=== PATIENT | female | born 1965 | race Caucasian/White ===

== ENCOUNTER 2025-02-14 09:51 | Outpatient (AMB) | payer OTHER, SELFPAY ==
[2025-02-14 10:01] VITALS: BP 129/83; PULSE 90; RESP 18; TEMP 36.8; O2SAT 95; BMI 47.9
--- NOTE | 2025-02-14 10:01 | PD.ORTHCLVIS ---
Vital signs 02/14/25 10:01 Height 1.6 m Height Method Stated Weight 122.612 kg Weight Measurement Method Standing Scale BMI 47.9 BP 129/83 Blood Pressure Source Automatic Cuff Blood Pressure Location Right Upper Arm Position Sitting Respiration 18 Pulse 90 Pulse Source Monitor Temp 98.3 F Temp Source Temporal Artery Scan Pulse Oximetry (%) 95 Oxygen Delivery Method Room Air Med/Allergies Allergies & Medications Allergies No Known Allergies Allergy (Verified 02/14/25 10:02) Medication Reconciliation aspirin 81 mg tablet,delayed release (Adult Aspirin Regimen) 81 mg PO QDAY 02/14/25 [History Confirmed 02/14/25] clonidine HCl 0.2 mg tablet 0.2 mg PO BID 02/14/25 [History Confirmed 02/14/25] ergocalciferol (vitamin D2) 1,250 mcg (50,000 unit) capsule 1,250 mcg PO QWEEK 02/14/25 [History Confirmed 02/14/25] folic acid 1 mg tablet 1 mg PO QDAY 02/14/25 [History Confirmed 02/14/25] hydrocodone 5 mg-acetaminophen 325 mg tablet 1 tab PO BID PRN 02/14/25 [History Confirmed 02/14/25] hydroxychloroquine 200 mg tablet 200 mg PO QDAY 02/14/25 [History Confirmed 02/14/25] lisinopril 40 mg tablet 40 mg PO QDAY 02/14/25 [History Confirmed 02/14/25] methotrexate 2.5 mg/mL oral solution 2.5 mg PO QWEEK 02/14/25 [History Confirmed 02/14/25] Exam Exam Breathing is nonlabored. Patient has a normal mood and affect. Bilateral extremities were evaluated and demonstrates sensation intact to light touch. Palpable pedal pulses are present. No significant edema is present. Bilateral hips were examined. The patient has no pain with log roll of the hips. Internal rotation to 30 degrees and external rotation to 30 degrees is painless. Negative FADIR. Left knee was examined today. The left knee is in reasonable alignment. Range of motion from 0-120 degrees. Knee is stable to varus and valgus as well as AP translation with <5mm. Patient has a negative McMurrays. There is no pain with patellofemoral compression and no crepitus noted. The knee is nontender to palpation. The right knee was also examined. The right knee is in varus alignment. Range of motion from 0-115 degrees. Knee is stable to varus and valgus as well as AP translation with <5mm. Patient has a negative McMurrays. There is no pain with patellofemoral compression and no crepitus noted. The knee is tender to palpation medially. Assessment and Plan Problem List (1) Arthritis of right knee: Status: Acute Plan: Patient is a morbidly obese 59-year-old female with rheumatoid arthritis and right knee pain. She reports that both knees actually hurt but the right knee is significantly worse. We will get standing x-rays. We will plan for cortisone injections at the next visit after we get authorization. She is not an operative candidate at this time Office Procedures GNS Level of Care Nursing/Assessment Patient Status: Initial/New Patient Nursing Assessment/Reassesment: Medication Reconciliation and Update PMH in EMR Coordination of Care: Complex Care and Chronic Disease 1-5, Consent,records obtained, informed consent, Education Simp Pt/Fam, 1 Ins Authorization, Lab and Imaging orders, Results/Orders obtained and Staff clarify orders Special Needs: Language special needs (EGYPTIAN ) New Patient Charge New Patient Point Assignment: 1104 New Patient Point Charge: INDEPENDENT MARKETING CONSULTANT Level 3 ([id number]) MA Intake Visit Data Collection New Patient or Established: New Patient (never been to [facility]) Reason for Visit:: RIGHT KNEE PAIN Seen by Clinical Staff ONLY (RN/MA): No Order Entry Technician Required: Yes PCP or OBGYN visit in last 3 months: Yes Hx Now: No Do You Feel Safe at Home: Yes Authorities Contacted: N/A Questionairres Past Medical History Past Medical History Have you ever been diagnosed with any of the following: Respiratory Problems Smoking: No Smoking Cessation Counseling: No Smoking Exposure: No Tobacco Use: No Subjective Visit Visit for: new patient and knee (RIGHT KNEE ) Immunization / Flu Flu Vaccine in the Last 12 Months: No Flu Vaccine Exclusion Criteria: Refused by Patient History of Present Illness Chief complaint: Bilateral knee pain Mary is a pleasant 59-year-old female with bilateral knee pain and bilateral knee arthritis. She does have a history of rheumatoid arthritis as well as lupus. She reports it is now well-controlled. She reports her weight is up and down. She has tried hyaluronic acid injections in the past Personal History Red flag PMH: none Pain Pain level (0-10): 8 Pain duration: 2 MONTHS Pain location: anterior Pain quality: sharp, burning and tingling Pain timing: increases with activity Associated signs & symptoms: weakness and stiffness Ambulatory data Ambulatory device: cane Walking distance (minutes): 5 Treatments Number of previous injections: 3 Improvement with previous injections: No Number of Physical Therapy sessions: 3 Improvement with PT: No Improvement with NSAIDS: n/a Review of Systems Review of Systems: All systems negative unless otherwise noted in HPI.
--- NOTE | 2025-02-14 10:23 | XR_ITS ---
Examination: Bilateral knees 2 views Right lateral knee left lateral knee 2 views Bilateral axial knees single view TECHNIQUE: Bilateral AP knees standing single view, bilateral PA knees standing single view flexion Standing right lateral knee left lateral knee 2 views Bilateral axial knees single view total 5 views Exam date and time: February 14, 2025 1031 hours INDICATIONS: Bilateral knee pain one year. FINDINGS: Moderate osteopenia Advanced narrowing cbil-[id number] medial joint space right knee Advanced narrowing medial joint space left knee Significant osteoarthritis lateral joint space right knee Significant osteoarthritis patellofemoral joints IMPRESSION: Significant osteoarthritis as above, including advanced narrowing [id number] medial joint space right knee Advanced narrowing medial joint space left knee
== END 2025-02-14 10:24 | disposition home or self-care (01) ==
LOC: HODSRG 09:51
PROVIDERS: Supervising Provider Orthopaedic Surgery Adult Reconstructive Orthopaedic Surgery; Visit Provider Orthopaedic Surgery Adult Reconstructive Orthopaedic Surgery
DX: M17.11 Unilateral primary osteoarthritis, right knee (principal); M25.561 Pain in right knee; M25.862 Other specified joint disorders, left knee
CPT/HCPCS: 73564; 99203; G0463

== ENCOUNTER 2025-03-16 08:34 | Outpatient (AMB) | payer OTHER, SELFPAY ==
[2025-03-16 08:48] VITALS: BP 128/84; PULSE 84; RESP 18; TEMP 36.5; O2SAT 94; BMI 48.8
--- NOTE | 2025-03-16 08:48 | PD.ORTHCLVIS ---
Vital signs 03/16/25 08:48 Height 1.6 m Height Method Stated Weight 124.936 kg Weight Measurement Method Standing Scale BMI 48.8 BP 128/84 Blood Pressure Source Automatic Cuff Blood Pressure Location Left Upper Arm Position Sitting Respiration 18 Pulse 84 Pulse Source Monitor Temp 97.7 F Temp Source Temporal Artery Scan Pulse Oximetry (%) 94 L Oxygen Delivery Method Room Air Med/Allergies Allergies & Medications Allergies No Known Allergies Allergy (Verified 03/16/25 08:53) Medication Reconciliation aspirin 81 mg tablet,delayed release (Adult Aspirin Regimen) 81 mg PO QDAY 02/14/25 [History Confirmed 03/16/25] clonidine HCl 0.2 mg tablet 0.2 mg PO BID 02/14/25 [History Confirmed 03/16/25] ergocalciferol (vitamin D2) 1,250 mcg (50,000 unit) capsule 1,250 mcg PO QWEEK 02/14/25 [History Confirmed 03/16/25] folic acid 1 mg tablet 1 mg PO QDAY 02/14/25 [History Confirmed 03/16/25] hydrocodone 5 mg-acetaminophen 325 mg tablet 1 tab PO BID PRN 02/14/25 [History Confirmed 03/16/25] hydroxychloroquine 200 mg tablet 200 mg PO QDAY 02/14/25 [History Confirmed 03/16/25] lisinopril 40 mg tablet 40 mg PO QDAY 02/14/25 [History Confirmed 03/16/25] methotrexate 2.5 mg/mL oral solution 2.5 mg PO QWEEK 02/14/25 [History Confirmed 03/16/25] Exam Exam Breathing is nonlabored. Patient has a normal mood and affect. Bilateral extremities were evaluated and demonstrates sensation intact to light touch. Palpable pedal pulses are present. No significant edema is present. Bilateral hips were examined. The patient has no pain with log roll of the hips. Internal rotation to 30 degrees and external rotation to 30 degrees is painless. Negative FADIR. Left knee was examined today. The left knee is in reasonable alignment. Range of motion from 0-120 degrees. Knee is stable to varus and valgus as well as AP translation with <5mm. Patient has a negative McMurrays. There is no pain with patellofemoral compression and no crepitus noted. The knee is nontender to palpation. The right knee was also examined. The right knee is in varus alignment. Range of motion from 0-115 degrees. Knee is stable to varus and valgus as well as AP translation with <5mm. Patient has a negative McMurrays. There is no pain with patellofemoral compression and no crepitus noted. The knee is tender to palpation medially. Bilateral knee x-rays demonstrates joint space narrowing and medial arthritis. Assessment and Plan Problem List (1) Arthritis of right knee: Status: Acute Plan: Patient is a morbidly obese 59-year-old female with rheumatoid arthritis and right knee pain. She reports that both knees actually hurt but the right knee is significantly worse. She is not a great candidate for total knee replacement at this time given her body habitus. Recommend knee cortisone injections as patient would like to proceed with conservative treatment at this time. The risks and benefits of the procedure were reviewed with the patient and patient gave verbal consent to continue with the procedure. Procedure: performed by Dr. Ann Using sterile technique the Bilateral knees were thoroughly prepped with alcohol, and approximately 1 cc of Kenalog 40 mg/mL and 4 cc of 1% lidocaine was injected into each knee without resistance into the medial tibial femoral joint space. The patient tolerated the procedure. Office Procedures GNS Level of Care Nursing/Assessment Patient Status: Established Patient Nursing Assessment/Reassesment: Medication Reconciliation, Update PMH in EMR and Vital Signs Coordination of Care: Complex Care and Chronic Disease 1-5, Education Complex Pt/Fam, Consent,records obtained, informed consent, Results/Orders obtained and Staff clarify orders Special Needs: Language special needs Established Patient Charge Established Patient Point Assignment: 95 Established Patient Point Charge: EP Level 3 (80-115) Surgical Proc/IM SQ injection Major Surgical Procedure: Yes (BILATERAL KNEE INJECTION ) Medication Given Medication Given Medication Given: Yes Documented Dose Given: 8 Route: Infiitration Medication Given Medication Given Medication Given: Yes Documented Dose Given: 2 Office Meds Xylocaine 10 mg/mL (1 %) injection solution Performing Provider: Adis Ann MD Performing Location: [facility] Administered by: Adis Ann MD on 03/16/25 09:06 Dose Route Admin Location Dispensed Lot Number Expiration Date [facility] Personal [employer] 40 mL Infiltration 40 mL [id number] 07/03/28 34436-829-69 [facility] triamcinolone acetonide 40 mg/mL suspension for injection Performing Provider: Adis Ann MD Performing Location: [facility] Administered by: Adis Ann MD on 03/16/25 09:06 Dose Route Admin Location Dispensed Lot Number Expiration Date [facility] Personal Injury Specialist 80 mg intra-articular KNEE 2 mL [id number] 10/02/26 1174-0342-34 [employer]ENTER[employer] [place] Intake Visit Data Collection New Patient or Established: Established Patient (seen at [facility] within 3 years) Reason for Visit:: XRAY RESULTS/BL KNEE INJ Seen by Clinical Staff ONLY (RN/MA): No Damage Inside Adjuster Required: No PCP or OBGYN visit in last 3 months: Yes Hx Now: No Do You Feel Safe at Home: Yes Authorities Contacted: N/A Questionairres Past Medical History Past Medical History Have you ever been diagnosed with any of the following: Respiratory Problems Smoking: No Smoking Cessation Counseling: No Smoking Exposure: No Tobacco Use: No Subjective Visit Visit for: follow up visit, knee (BILATERAL), x-rays and injections Immunization / Flu Flu Vaccine in the Last 12 Months: No Flu Vaccine Exclusion Criteria: Refused by Patient History of Present Illness Chief complaint: Bilateral knee pain Mary is a pleasant 59-year-old female with bilateral knee pain and bilateral knee arthritis. She does have a history of rheumatoid arthritis as well as lupus. She reports it is now well-controlled. She reports her weight is up and down. She has tried hyaluronic acid injections in the past Personal History Occupation: RETIRED Red flag PMH: none Pain Pain level (0-10): 8 Pain duration: CONSTANT Pain location: inside (medial) and anterior Pain quality: sharp, dull and aching Pain timing: night, increases with activity and stairs Associated signs & symptoms: numbness, weakness and stiffness Ambulatory data Ambulatory device: cane Walking distance (minutes): 5 Treatments Number of previous injections: 3 Improvement with previous injections: No Number of Physical Therapy sessions: 3 Improvement with PT: No Improvement with NSAIDS: no Review of Systems Review of Systems: All systems negative unless otherwise noted in HPI.
== END 2025-03-16 09:08 | disposition home or self-care (01) ==
LOC: HODSRG 08:34
PROVIDERS: Supervising Provider Orthopaedic Surgery Adult Reconstructive Orthopaedic Surgery; Visit Provider Orthopaedic Surgery Adult Reconstructive Orthopaedic Surgery
DX: M17.0 Bilateral primary osteoarthritis of knee (principal); M25.562 Pain in left knee; M25.561 Pain in right knee; E66.01 Morbid (severe) obesity due to excess calories; Z68.42 Body mass index [BMI] 45.0-49.9, adult
CPT/HCPCS: 20610; 99213; J3301; J3490; G0463

== ENCOUNTER 2025-06-20 08:04 | Outpatient (AMB) | payer OTHER, SELFPAY ==
--- NOTE | 2025-06-20 08:11 | ORTHONT_ITS ---
Vital signs 06/20/25 08:17 Height 1.6 m Height Method Measured Weight 125.844 kg Weight Measurement Method Standing Scale BMI 49.1 BP 149/92 H Blood Pressure Source Automatic Cuff Blood Pressure Location Left Upper Arm Position Sitting Respiration 18 Pulse 87 Pulse Source Monitor Temp 97.4 F Temp Source Temporal Artery Scan Pulse Oximetry (%) 95 Oxygen Delivery Method Room Air Med/Allergies Allergies & Medications Allergies No Known Allergies Allergy (Verified 06/20/25 08:18) Medication Reconciliation aspirin 81 mg tablet,delayed release (Adult Aspirin Regimen) 81 mg PO QDAY 02/14 [History Confirmed 06/20/25] clonidine HCl 0.2 mg tablet 0.2 mg PO BID 02/14/25 [History Confirmed 06/20/25] ergocalciferol (vitamin D2) 1,250 mcg (50,000 unit) capsule 1,250 mcg PO QWEEK 02/14/25 [History Confirmed 06/20/25] folic acid 1 mg tablet 1 mg PO QDAY 02/14/25 [History Confirmed 06/20/25] hydrocodone 5 mg-acetaminophen 325 mg tablet 1 tab PO BID PRN 02/14/25 [History Confirmed 06/20/25] hydroxychloroquine 200 mg tablet 200 mg PO QDAY 02/14/25 [History Confirmed 06/20/25] lisinopril 40 mg tablet 40 mg PO QDAY 02/14/25 [History Confirmed 06/20/25] methotrexate 2.5 mg/mL oral solution 2.5 mg PO QWEEK 02/14/25 [History Confirmed 06/20/25] Exam Exam Breathing is nonlabored. Patient has a normal mood and affect. Bilateral extremities were evaluated and demonstrates sensation intact to light touch. Palpable pedal pulses are present. No significant edema is present. Bilateral hips were examined. The patient has no pain with log roll of the hips. Internal rotation to 30 degrees and external rotation to 30 degrees is painless. Negative FADIR. Left knee was examined today. The left knee is in reasonable alignment. Range of motion from 0-120 degrees. Knee is stable to varus and valgus as well as AP translation with <5mm. Patient has a negative McMurrays. There is no pain with patellofemoral compression and no crepitus noted. The knee is nontender to palpation. The right knee was also examined. The right knee is in varus alignment. Range of motion from 0-115 degrees. Knee is stable to varus and valgus as well as AP translation with <5mm. Patient has a negative McMurrays. There is no pain with patellofemoral compression and no crepitus noted. The knee is tender to palpation medially. Bilateral knee x-rays demonstrates joint space narrowing and medial arthritis. Assessment and Plan Problem List (1) Arthritis of right knee: Status: Acute Plan: Patient is a morbidly obese 59-year-old female with rheumatoid arthritis and right knee pain. She reports that both knees actually hurt but the right knee is significantly worse. She is not a great candidate for total knee replacement at this time given her body habitus. Recommend knee cortisone injections as patient would like to proceed with conservative treatment at this time. The risks and benefits of the procedure were reviewed with the patient and patient gave verbal consent to continue with the procedure. Procedure: performed by Dr. Ann Using sterile technique the Bilateral knees were thoroughly prepped with alcohol, and approximately 1 cc of Depo-Medrol 80 and 4 cc of 0.2% ropivacaine was injected into each knee without resistance into the medial tibial femoral joint space. The patient tolerated the procedure. Office Procedures GNS Level of Care Nursing/Assessment Patient Status: Established Patient Nursing Assessment/Reassesment: Medication Reconciliation, Orthostatic Vitals, Update PMH in EMR and Vital Signs Coordination of Care: Complex Care and Chronic Disease 1-5, Education Complex Pt/Fam, Consent,records obtained, informed consent, Results/Orders obtained and Staff clarify orders Special Needs: Language special needs Established Patient Charge Established Patient Point Assignment: 105 Established Patient Point Charge: EP Level 3 (80-115) Surgical Proc/IM SQ injection Major Surgical Procedure: Yes (BILATERAL KNEE INJECTION) Medication Given Medication Given Medication Given: Yes Documented Dose Given: 1 Route: Infiitration Medication Given Medication Given Medication Given: Yes Documented Dose Given: 1 Route: Infiitration Medication Given Medication Given Medication Given: Yes Documented Dose Given: 4 Route: Infiitration Medication Given Medication Given Medication Given: Yes Documented Dose Given: 4 Route: Infiitration Office Meds methylprednisolone acetate 80 mg/mL suspension for injection Performing Provider: Adis Ann MD Performing Location: [facility] Administered by: Adis Ann MD on 06/20/25 08:49 Dose Route Admin Location Dispensed Lot Number Expiration Date [facility] [employer] 80 mg intra-articular 1 mL [id number] 12/01/26 9673-5807-34 PH [id number]-[id number] methylprednisolone acetate 80 mg/mL suspension for injection Performing Provider: Adis Ann MD Performing Location: [facility] Administered by: Adis Ann MD on 06/20/25 08:49 Dose Route Admin Location Dispensed Lot Number Expiration Date [facility] [employer] 80 mg intra-articular 1 mL [id number] 03/31/27 [address]-2 [employer] ropivacaine (PF) 2 mg/mL (0.2 %) injection solution Performing Provider: Adis Ann MD Performing Location: [facility] Administered by: Adis Ann MD on 06/20/25 08:49 Dose Route Admin Location Dispensed Lot Number Expiration Date [facility] [employer] 20 mL Infiltration 20 mL [id number] 08/31/26 07194-258-66 [facility] ropivacaine (PF) 2 mg/mL (0.2 %) injection solution Performing Provider: Adis Ann MD Performing Location: [facility] Administered by: Adis Ann MD on 06/20/25 08:49 Dose Route Admin Location Dispensed Lot Number Expiration Date [facility] [employer] 20 mL Infiltration 20 mL [id number] 08/31/26 95397-474-29 [facility] [place] Intake Visit Data Collection Reason for Visit:: BL KNEE INJ/3 MONTH F/U Seen by Clinical Staff ONLY (RN/MA): No Assessment Analyst Required: Yes PCP or OBGYN visit in last 3 months: Yes Hx Now: No Do You Feel Safe at Home: Yes Authorities Contacted: N/A Questionairres Past Medical History Past Medical History Have you ever been diagnosed with any of the following: Respiratory Problems Smoking: No Smoking Cessation Counseling: No Smoking Exposure: No Tobacco Use: No Subjective Visit Visit for: follow up visit and knee Immunization / Flu Flu Vaccine in the Last 12 Months: No Flu Vaccine Exclusion Criteria: Refused by Patient History of Present Illness Chief complaint: 3 MONTH F/U BILATERAL KNEE INJECTION Mary is a pleasant 59-year-old female with bilateral knee pain and bilateral knee arthritis. She does have a history of rheumatoid arthritis as well as lupus. She reports it is now well-controlled. She reports her weight is up and down. She has tried hyaluronic acid injections in the past.She received 2 months with the last knee injection Personal History Occupation: RETIRED Red flag PMH: none Pain Pain level (0-10): 8 Pain duration: CONSTANT Pain location: inside (medial) and anterior Pain quality: sharp, dull and aching Pain timing: night, increases with activity and stairs Associated signs & symptoms: numbness, weakness and stiffness Ambulatory data Ambulatory device: cane Walking distance (minutes): 5 Treatments Number of previous injections: 5 Improvement with previous injections: Yes Number of Physical Therapy sessions: 3 Improvement with PT: No Improvement with NSAIDS: no Review of Systems Review of Systems: All systems negative unless otherwise noted in HPI.
[2025-06-20 08:17] VITALS: BP 149/92; PULSE 87; RESP 18; TEMP 36.3; O2SAT 95; BMI 49.1
== END 2025-06-20 08:47 | disposition home or self-care (01) ==
LOC: HODSRG 08:04
PROVIDERS: Supervising Provider Orthopaedic Surgery Adult Reconstructive Orthopaedic Surgery; Visit Provider Orthopaedic Surgery Adult Reconstructive Orthopaedic Surgery
DX: M17.11 Unilateral primary osteoarthritis, right knee (principal); M25.561 Pain in right knee; M25.562 Pain in left knee; E66.01 Morbid (severe) obesity due to excess calories; Z68.42 Body mass index [BMI] 45.0-49.9, adult
CPT/HCPCS: 20610; 99213; J1010; J2795; G0463

== ENCOUNTER 2025-09-21 08:07 | Outpatient (AMB) | payer OTHER, SELFPAY ==
--- NOTE | 2025-09-21 08:16 | ORTHONT_ITS ---
Vital signs 09/21/25 08:22 Height 1.6 m Height Method Measured Weight 123.037 kg Weight Measurement Method Standing Scale BMI 48.0 BP 146/93 H Blood Pressure Source Automatic Cuff Blood Pressure Location Left Upper Arm Position Sitting Respiration 20 Pulse 85 Pulse Source Monitor Temp 98.4 F Temp Source Temporal Artery Scan Pulse Oximetry (%) 95 Oxygen Delivery Method Room Air Med/Allergies Allergies & Medications Allergies No Known Allergies Allergy (Verified 09/21/25 08:23) Medication Reconciliation aspirin 81 mg tablet,delayed release (Adult Aspirin Regimen) 81 mg PO QDAY 02/14 [History Confirmed 09/21/25] clonidine HCl 0.2 mg tablet 0.2 mg PO BID 02/14/25 [History Confirmed 09/21/25] ergocalciferol (vitamin D2) 1,250 mcg (50,000 unit) capsule 1,250 mcg PO QWEEK 02/14/25 [History Confirmed 09/21/25] folic acid 1 mg tablet 1 mg PO QDAY 02/14/25 [History Confirmed 09/21/25] hydrocodone 5 mg-acetaminophen 325 mg tablet 1 tab PO BID PRN 02/14/25 [History Confirmed 09/21/25] hydroxychloroquine 200 mg tablet 200 mg PO QDAY 02/14/25 [History Confirmed 09/21/25] lisinopril 40 mg tablet 40 mg PO QDAY 02/14/25 [History Confirmed 09/21/25] methotrexate 2.5 mg/mL oral solution 2.5 mg PO QWEEK 02/14/25 [History Confirmed 09/21/25] Exam Exam Breathing is nonlabored. Patient has a normal mood and affect. Bilateral extremities were evaluated and demonstrates sensation intact to light touch. Palpable pedal pulses are present. No significant edema is present. Bilateral hips were examined. The patient has no pain with log roll of the hips. Internal rotation to 30 degrees and external rotation to 30 degrees is painless. Negative FADIR. Left knee was examined today. The left knee is in reasonable alignment. Range of motion from 0-120 degrees. Knee is stable to varus and valgus as well as AP translation with <5mm. Patient has a negative McMurrays. There is no pain with patellofemoral compression and no crepitus noted. The knee is nontender to palpation. The right knee was also examined. The right knee is in varus alignment. Range of motion from 0-115 degrees. Knee is stable to varus and valgus as well as AP translation with <5mm. Patient has a negative McMurrays. There is no pain with patellofemoral compression and no crepitus noted. The knee is tender to palpation medially. Bilateral knee x-rays demonstrates joint space narrowing and medial arthritis. Assessment and Plan Problem List (1) Arthritis of right knee: Status: Acute Plan: Patient is a morbidly obese 59-year-old female with rheumatoid arthritis and right knee pain. She reports that both knees actually hurt but the right knee is significantly worse. She is not a great candidate for total knee replacement at this time given her body habitus. We discussed weight loss in great detail today Recommend knee cortisone injections as patient would like to proceed with conservative treatment at this time. The risks and benefits of the procedure were reviewed with the patient and patient gave verbal consent to continue with the procedure. Procedure: performed by Dr. Ann Using sterile technique the Bilateral knees were thoroughly prepped with alcohol, and approximately 1 cc of Depo-Medrol 80 and 4 cc of 0.2% ropivacaine was injected into each knee without resistance into the medial tibial femoral joint space. The patient tolerated the procedure. Office Procedures GNS Level of Care Nursing/Assessment Patient Status: Established Patient Nursing Assessment/Reassesment: Medication Reconciliation, Update PMH in EMR and Vital Signs Coordination of Care: Complex Care and Chronic Disease 1-5, Education Complex Pt/Fam, Consent,records obtained, informed consent, Results/Orders obtained and Staff clarify orders Special Needs: Language special needs Established Patient Charge Established Patient Point Assignment: 95 Established Patient Point Charge: EP Level 3 (80-115) Surgical Proc/IM SQ injection Minor Surgical Procedure: Yes (KNEE INJECTION) Medication Given Medication Given Medication Given: Yes Documented Dose Given: 2 Route: Infiitration Medication Given Medication Given Medication Given: Yes Documented Dose Given: 8 Route: Infiitration Office Meds methylprednisolone acetate 80 mg/mL suspension for injection Performing Provider: Adis Ann MD Performing Location: [facility] Administered by: Adis Ann MD on 09/21/25 08:57 Dose Route Admin Location Dispensed Lot Number Expiration Date Pack age [facility] Certification Technician 160 mg intra-articular KNEE 2 mL [id number] 06/01/27 [address]-7 [id number] [employer] ropivacaine (PF) 2 mg/mL (0.2 %) injection solution Performing Provider: Adis Ann MD Performing Location: [facility] Administered by: Adis Ann MD on 09/21/25 08:57 Dose Route Admin Location Dispensed Lot Number Expiration Date Pack age [facility] Certification Technician 40 mL Infiltration KNEE 40 mL [id number] 12/02/27 45697-162-80 [id number] [facility] Intake Visit Data Collection New Patient or Established: Established Patient (seen at [facility] within 3 years) Reason for Visit:: BL KNEE INJ/3 MONTH F/U Seen by Clinical Staff ONLY (RN/MA): No Social Studies Department Chair Required: Yes PCP or OBGYN visit in last 3 months: Yes Hx Now: No Do You Feel Safe at Home: Yes Authorities Contacted: N/A Questionairres Past Medical History Past Medical History Have you ever been diagnosed with any of the following: Respiratory Problems Smoking: No Smoking Cessation Counseling: No Smoking Exposure: No Tobacco Use: No Subjective Visit Visit for: follow up visit and knee Immunization / Flu Flu Vaccine in the Last 12 Months: No Flu Vaccine Exclusion Criteria: Refused by Patient History of Present Illness Chief complaint: 3 MONTH F/U BILATERAL KNEE INJECTION Mary is a pleasant 59-year-old female with bilateral knee pain and bilateral knee arthritis. She does have a history of rheumatoid arthritis as well as lupus. She reports it is now well-controlled. She has recently started a GLP injection 5 weeks. she has tried hyaluronic acid injections in the past.She received 2months with the last knee injection Personal History Occupation: RETIRED Red flag PMH: none Pain Pain level (0-10): 8 Pain duration: CONSTANT Pain location: inside (medial) and anterior Pain quality: sharp, dull and aching Pain timing: night, increases with activity and stairs Associated signs & symptoms: numbness, weakness and stiffness Ambulatory data Ambulatory device: cane Walking distance (minutes): 5 Treatments Number of previous injections: 5 Improvement with previous injections: Yes Number of Physical Therapy sessions: 3 Improvement with PT: No Improvement with NSAIDS: no Review of Systems Review of Systems: All systems negative unless otherwise noted in HPI.
[2025-09-21 08:22] VITALS: BP 146/93; PULSE 85; RESP 20; TEMP 36.9; O2SAT 95; BMI 48.0
== END 2025-09-21 08:43 | disposition home or self-care (01) ==
LOC: HODSRG 08:07
PROVIDERS: Supervising Provider Orthopaedic Surgery Adult Reconstructive Orthopaedic Surgery; Visit Provider Orthopaedic Surgery Adult Reconstructive Orthopaedic Surgery
DX: M25.562 Pain in left knee (principal); M25.561 Pain in right knee; M17.0 Bilateral primary osteoarthritis of knee; E66.01 Morbid (severe) obesity due to excess calories; Z68.42 Body mass index [BMI] 45.0-49.9, adult
CPT/HCPCS: 20610; 99213; J1010; J2795; G0463